=== PATIENT | male | born 1970 | race Caucasian/White ===

== ENCOUNTER 2022-03-13 21:10 | Emergency (ER) | payer SELFPAY ==
[~2022-03-13] VITALS: Ht 172.7 cm; Wt 89.8 kg
[2022-03-13] MEDS ORDERED: ONDANSETRON HCL INJ 2MG/ML 2ML 2 MG/ML VIAL IV STA (21:25)
[2022-03-13] MEDS ORDERED: Morphine 4mg Syringe 4 MG/ML INJ IV STA (21:25)
[2022-03-13] MEDS ORDERED: SODIUM CHLORIDE 0.9% 1000ML 1,000 ML IV STA (21:25)
[2022-03-13 21:37] LABS: BASOPHILS % 0.4 % (0.0-1.0); EOSINOPHILS # (AUTO) 0.1 (0.0-0.4); EOSINOPHILS % 1.3 % (0.0-6.0); HEMATOCRIT 44.7 % (38.2-49.6); HEMOGLOBIN 14.9 g/dL (14.0-18.0); LYMPHOCYTES # (AUTO) 2.4 (1.0-3.2); MEAN CORPUSCULAR HEMOGLOBIN 29.3 pg (28-32); MEAN CORPUSCULAR HGB CONC 33.3 g/dL (31-35); MONOCYTES % 10.4 % (4.4-11.3); NEUTROPHILS # (AUTO) 5.7 (2.1-6.9); NEUTROPHILS % 61.7 % (38.7-80.0); PLATELET COUNT 394 x10e3/uL (140-360); RED BLOOD COUNT 5.08 x10e6/uL (4.3-5.7); RED CELL DISTRIBUTION WIDTH 12.6 % (11.7-14.4)
[2022-03-13 21:45] LABS: CLARITY,URINE CLEAR (CLEAR); COLOR,URINE YELLOW (YELLOW); KETONES,URINE NEGATIVE (NEGATIVE); LEUKOCYTE ESTERASE ,URINE NEGATIVE (NEGATIVE); NITRITE,URINE NEGATIVE (NEGATIVE); PROTEIN,URINE DIPSTICK NEGATIVE (NEGATIVE); URINE UROBILINOGEN 0.2 mg/dL (0.2 - 1)
[2022-03-13 21:54] LABS: ALBUMIN 3.9 g/dL (3.5-5.0); ALBUMIN/GLOBULIN RATIO 0.9 (0.8-2.0); ANION GAP 15.8 mmol/L (8-16); CALCIUM 9.3 mg/dL (8.4-10.2); CREATININE, SERUM 1.08 mg/dL (0.72-1.25); POTASSIUM 3.8 mmol/L (3.5-5.1)
[2022-03-13] MEDS ORDERED: IOPAMIDOL 370 MG/ML 100 ML INFUS..BTL INJ ONE (22:21)
[2022-03-13] MEDS ORDERED: Morphine 2mg Syringe 2 MG/ML SYR IV STA (23:23)
[2022-03-13] MEDS ORDERED: HYDROCODON-ACE1 EA11 PO ×2 (23:25→23:27)
[2022-03-13] MEDS ORDERED: ULTRAM50 MG PO (23:32)
[2022-03-14] MEDS ORDERED: KETOROLAC TROMETHAMINE 30 MG/ML VIAL IV STA (00:07)
[2022-03-14] MEDS ORDERED: KETOROLAC TROMETHAMINE 30 MG/ML VIAL ONE (00:07)
== END 2022-03-14 | disposition home or self-care (01) ==
LOC: ER 21:15
DX: K40.90 Unilateral inguinal hernia, without obstruction or gangrene, not specified as recurrent (principal)
CPT/HCPCS: 36415; 74177; 80053; 81001; 83690; 85025; J1885; J2270; J2405; J7030; Q9967; 99284

== ENCOUNTER 2022-03-16 18:07 | Emergency (ER) | payer SELFPAY ==
[~2022-03-16] VITALS: Ht 172.7 cm; Wt 89.8 kg
[~2022-03-16 18:07] MED LIST: HYDROCODON-ACE1 EA11 PO; ULTRAM50 MG PO
[2022-03-16] MEDS ORDERED: ULTRAM 50MG50 MG PO (18:30)
== END 2022-03-16 18:35 | disposition home or self-care (01) ==
LOC: ER 18:28
DX: K40.90 Unilateral inguinal hernia, without obstruction or gangrene, not specified as recurrent (principal); I10 Essential (primary) hypertension
CPT/HCPCS: 99282

== ENCOUNTER 2022-04-01 07:53 | Emergency (ER) | payer SELFPAY ==
[~2022-04-01] VITALS: Ht 172.7 cm; Wt 89.8 kg
[~2022-04-01 07:53] MED LIST changes: +ULTRAM 50MG50 MG PO
[2022-04-01] MEDS ORDERED: SODIUM CHLORIDE FLUSH 10 ML SYR IV PRN (08:00)
[2022-04-01 08:09] LABS: BASOPHILS % 0.4 % (0.0-1.0); EOSINOPHILS # (AUTO) 0.2 (0.0-0.4); EOSINOPHILS % 1.8 % (0.0-6.0); HEMATOCRIT 44.1 % (38.2-49.6); HEMOGLOBIN 14.7 g/dL (14.0-18.0); LYMPHOCYTES # (AUTO) 2.4 (1.0-3.2); LYMPHOCYTES % 27.2 % (18.0-39.1); MEAN CORPUSCULAR HEMOGLOBIN 29.6 pg (28-32); MEAN CORPUSCULAR HGB CONC 33.3 g/dL (31-35); MEAN CORPUSCULAR VOLUME 88.7 fL (81-99); MONOCYTES # (AUTO) 0.8 (0.2-0.8); MONOCYTES % 9.3 % (4.4-11.3); NEUTROPHILS # (AUTO) 5.4 (2.1-6.9); NEUTROPHILS % 61.1 % (38.7-80.0); PLATELET COUNT 357 x10e3/uL (140-360); RED BLOOD COUNT 4.97 x10e6/uL (4.3-5.7); RED CELL DISTRIBUTION WIDTH 12.6 % (11.7-14.4)
[2022-04-01 08:17] LABS: CLARITY,URINE CLEAR (CLEAR); COLOR,URINE YELLOW (YELLOW)
[2022-04-01 08:18] LABS: AMPHETAMINES SCREEN,URINE NEGATIVE (NEGATIVE); BENZODIAZEPINES SCREEN,URINE NEGATIVE (NEGATIVE); KETONES,URINE NEGATIVE (NEGATIVE); LEUKOCYTE ESTERASE ,URINE NEGATIVE (NEGATIVE); NITRITE,URINE NEGATIVE (NEGATIVE); PHENCYCLIDINE SCREEN,URINE NEGATIVE (NEGATIVE); PROTEIN,URINE DIPSTICK NEGATIVE (NEGATIVE); URINE UROBILINOGEN 0.2 mg/dL (0.2 - 1)
[2022-04-01 08:21] LABS: INR 0.78; PROTHROMBIN TIME 11.6 seconds (11.9-14.5)
[2022-04-01 08:22] LABS: PARTIAL THROMBOPLASTIN TIME 30.6 seconds (23.8-35.5)
[2022-04-01 08:28] LABS: BACTERIA,URINE RARE /HPF; EPITHELIAL CELLS,URINE FEW /LPF; WBC,URINE (MAN) 0-5 /HPF (0-5)
[2022-04-01 08:34] LABS: ALANINE AMINOTRANSFERASE 17 IU/L (0-55); ALBUMIN 4.1 g/dL (3.5-5.0); ALKALINE PHOSPHATASE 64 IU/L (40-150); ANION GAP 15.7 mmol/L (8-16); BLOOD UREA NITROGEN 8 mg/dL (7-26); BUN/CREATININE RATIO 7 (6-25); CALCIUM 9.3 mg/dL (8.4-10.2); CARBON DIOXIDE 23 mmol/L (22-29); CHLORIDE 103 mmol/L (98-107); CREATININE, SERUM 1.07 mg/dL (0.72-1.25); EST GLOMERULAR FILTRATION RATE 73 ML/MIN (60-); GLUCOSE 166 mg/dL (74-118); POTASSIUM 3.7 mmol/L (3.5-5.1); SODIUM 138 mmol/L (136-145)
[2022-04-01] MEDS ORDERED: ULTRAM50 MG PO (10:16)
== END 2022-04-01 10:26 | disposition home or self-care (01) ==
LOC: ER 07:57
DX: R10.32 Left lower quadrant pain (principal); K40.90 Unilateral inguinal hernia, without obstruction or gangrene, not specified as recurrent; K57.30 Diverticulosis of large intestine without perforation or abscess without bleeding; M54.50 Low back pain, unspecified; Z20.822 Contact with and (suspected) exposure to COVID-19; I10 Essential (primary) hypertension
CPT/HCPCS: 36415; 71045; 74176; 80053; 80307; 81001; 84484; 85025; 85610; 85730; 94760; 99284; U0002

== ENCOUNTER 2022-04-04 08:11 | Emergency (ER) | payer SELFPAY ==
[~2022-04-04] VITALS: Ht 172.7 cm; Wt 89.8 kg
[2022-04-04] MEDS ORDERED: NAPROSYN500 MG PO (08:31)
== END 2022-04-04 08:36 | disposition home or self-care (01) ==
LOC: ER 08:15
DX: R10.32 Left lower quadrant pain (principal); K40.90 Unilateral inguinal hernia, without obstruction or gangrene, not specified as recurrent; S76.812A Strain of other specified muscles, fascia and tendons at thigh level, left thigh, initial encounter; X50.1XXA Overexertion from prolonged static or awkward postures, initial encounter; Y93.01 Activity, walking, marching and hiking; Y99.0 Civilian activity done for income or pay; I10 Essential (primary) hypertension
CPT/HCPCS: 99283

== ENCOUNTER 2022-05-13 19:35 | Emergency (ER) | payer SELFPAY ==
[~2022-05-13] VITALS: Ht 172.7 cm; Wt 89.8 kg
[~2022-05-13 19:35] MED LIST changes: +NAPROSYN500 MG PO
[2022-05-13] MEDS ORDERED: ONDANSETRON HCL 4 MG ORAL DISINTEGRATING TAB PO ONE (19:45)
[2022-05-13] MEDS ORDERED: KETOROLAC TROMETHAMINE 30 MG/ML VIAL IM STA (19:49)
[2022-05-13] MEDS ORDERED: ONDANSETRON ODT4 MG PO (19:52)
[2022-05-13] MEDS ORDERED: ONDANSETRON HCL 4 MG ORAL DISINTEGRATING TAB ONE (19:56)
[2022-05-13] MEDS ORDERED: KETOROLAC TROMETHAMINE 30 MG/ML VIAL ONE (20:01)
== END 2022-05-13 19:56 | disposition home or self-care (01) ==
LOC: ER 19:42
DX: R06.02 Shortness of breath (principal); U07.1 COVID-19; R07.81 Pleurodynia; R11.2 Nausea with vomiting, unspecified; I10 Essential (primary) hypertension
CPT/HCPCS: 93005; 99283; J1885; Q0162

== ENCOUNTER 2022-09-17 13:12 | Emergency (ER) | payer OTHER ==
[~2022-09-17] VITALS: Ht 172.7 cm; Wt 91.2 kg
[~2022-09-17 13:12] MED LIST changes: +ONDANSETRON ODT4 MG PO
[2022-09-17] MEDS ORDERED: ULTRAM 50MG50 MG PO (16:06)
== END 2022-09-17 16:17 | disposition home or self-care (01) ==
LOC: FSED 13:23
DX: S30.1XXA Contusion of abdominal wall, initial encounter (principal); W17.89XA Other fall from one level to another, initial encounter; Y93.89 Activity, other specified; Y92.89 Other specified places as the place of occurrence of the external cause; I10 Essential (primary) hypertension; K40.90 Unilateral inguinal hernia, without obstruction or gangrene, not specified as recurrent
CPT/HCPCS: 99282

== ENCOUNTER 2022-09-19 17:00 | Emergency (ER) | payer SELFPAY ==
[~2022-09-19] VITALS: Ht 172.7 cm; Wt 91.2 kg
[2022-09-19] MEDS ORDERED: KETOROLAC TROMETHAMINE 30 MG/ML VIAL IV STA (17:56)
[2022-09-19] MEDS ORDERED: KETOROLAC TROMETHAMINE 30 MG/ML VIAL ONE (18:13)
[2022-09-19] MEDS ORDERED: IOPAMIDOL 370 MG/ML 100 ML INFUS..BTL INJ ONE (18:26)
[2022-09-19] MEDS ORDERED: HYDROCODONE/APAP 5MG-325MG TAB PO ONE (19:30)
[2022-09-19] MEDS ORDERED: GABAPENTIN300 MG PO (19:47)
[2022-09-19 19:55] VITALS: BP 157/95
[2022-09-19] MEDS ORDERED: HYDROCODONE/APAP 5MG-325MG TAB ONE (20:03)
== END 2022-09-19 19:55 | disposition home or self-care (01) ==
LOC: FSED 17:18
DX: R10.32 Left lower quadrant pain (principal); K40.90 Unilateral inguinal hernia, without obstruction or gangrene, not specified as recurrent; S39.011A Strain of muscle, fascia and tendon of abdomen, initial encounter; S76.812A Strain of other specified muscles, fascia and tendons at thigh level, left thigh, initial encounter; I10 Essential (primary) hypertension
CPT/HCPCS: 74177; 80053; 99284; J1885; Q9967

== ENCOUNTER 2023-12-13 13:32 | Emergency (ER) | payer SELFPAY ==
[~2023-12-13] VITALS: Ht 172.7 cm; Wt 92.1 kg
[~2023-12-13 13:32] MED LIST changes: +GABAPENTIN300 MG PO; +HYDROCODON-ACE1 EA12 PO; +PENICILLIN V P500 MG PO; +PREDNISONE20 MG PO
[2023-12-13 13:38] VITALS: O2SAT 96
[2023-12-13] MEDS ORDERED: GABAPENTIN300 MG PO (13:57)
[2023-12-13] MEDS ORDERED: DIPHENHYDRAMINE25 MG PO (13:57)
[2023-12-13] MEDS ORDERED: ZANAFLEX4 MG PO (13:57)
[2023-12-13] MEDS ORDERED: TRAMADOL HCL 50 MG TAB PO ONE (14:00)
== END 2023-12-13 14:11 | disposition home or self-care (01) ==
LOC: FSED 13:49
DX: M51.37 Other intervertebral disc degeneration, lumbosacral region (principal); I10 Essential (primary) hypertension
CPT/HCPCS: 99282

== ENCOUNTER 2024-06-23 20:31 | Emergency (ER) | payer SELFPAY ==
[~2024-06-23] VITALS: Ht 172.7 cm; Wt 92.1 kg
[~2024-06-23 20:31] MED LIST changes: +DIPHENHYDRAMINE25 MG PO; +ZANAFLEX4 MG PO
[2024-06-23 21:20] LABS: BASOPHILS # (AUTO) 0.1 (0.0-0.1); BASOPHILS % 0.6 % (0.0-1.0); EOSINOPHILS # (AUTO) 0.1 (0.0-0.4); EOSINOPHILS % 1.4 % (0.0-6.0); HEMATOCRIT 42.7 % (38.2-49.6); HEMOGLOBIN 14.4 g/dL (14.0-18.0); LYMPHOCYTES # (AUTO) 2.7 (1.0-3.2); MEAN CORPUSCULAR HEMOGLOBIN 28.9 pg (28-32); MEAN CORPUSCULAR HGB CONC 33.7 g/dL (31-35); MEAN CORPUSCULAR VOLUME 85.6 fL (81-99); MONOCYTES # (AUTO) 0.9 (0.2-0.8); MONOCYTES % 10.2 % (4.4-11.3); NEUTROPHILS % 56.5 % (38.7-80.0); PLATELET COUNT 349 x10e3/uL (140-360); RED BLOOD COUNT 4.99 x10e6/uL (4.3-5.7); RED CELL DISTRIBUTION WIDTH 13.2 % (11.7-14.4); WHITE BLOOD COUNT 8.84 x10e3/uL (4.8-10.8)
[2024-06-23] MEDS: Morphine 4mg INJECTION 4 MG/ML INJ IV ONE (21:26)
[2024-06-23] MEDS: ONDANSETRON HCL INJ 2MG/ML 2ML 2 MG/ML VIAL IV STA (21:26)
[2024-06-23 21:30] LABS: CLARITY,URINE SL CLOUDY (CLEAR); COLOR,URINE YELLOW (YELLOW); PH,URINE 6.5 (5 - 7)
[2024-06-23 21:35] LABS: BILIRUBIN,URINE NEGATIVE (NEGATIVE); GLUCOSE, URINE NEGATIVE (NEGATIVE); KETONES,URINE NEGATIVE (NEGATIVE); LEUKOCYTE ESTERASE ,URINE NEGATIVE (NEGATIVE); NITRITE,URINE NEGATIVE (NEGATIVE); PROTEIN,URINE DIPSTICK NEGATIVE (NEGATIVE); URINE UROBILINOGEN 0.2 mg/dL (0.2 - 1)
[2024-06-23 21:36] LABS: ANION GAP 15.5 mmol/L (8-16); CALCIUM 9.7 mg/dL (8.4-10.2); CREATININE, SERUM 1.26 mg/dL (0.72-1.25); POTASSIUM 3.5 mmol/L (3.5-5.1)
[2024-06-24 00:32] VITALS: PULSE 92; RESP 16; TEMP 98.5; O2SAT 99
== END 2024-06-24 00:35 | disposition home or self-care (01) ==
LOC: ER 20:38
DX: R10.32 Left lower quadrant pain (principal); K40.90 Unilateral inguinal hernia, without obstruction or gangrene, not specified as recurrent; I10 Essential (primary) hypertension
CPT/HCPCS: 36415; 74176; 80048; 81001; 85025; 99284; J2270; J2405